=== PATIENT | male | born 1960 | race Caucasian/White ===

== ENCOUNTER 2021-03-10 17:37 | Emergency (ER) | payer SELFPAY ==
[2021-03-10 17:44] VITALS: BP 135/85; PULSE 54; RESP 15; O2SAT 100
--- NOTE | 2021-03-10 17:51 | ECG_ITS ---
Measurements Intervals [place] Rate: 80 P: 72 OR: 137 QRS: 74 QRSD: 102 T: 55 QT: 365 QTc: 422 Interpretive Statements SINUS RHYTHM PEAKED T WAVES- CONSIDER HYPERKALEMIA OR ISCHEMIA BORDERLINE ST ABNORMALITY- INFERIOR LEADS BASELINE ARTIFACT- I, II, III, AVR, AVL, AVF, V1-V6 ABNORMAL ECG Electronically Signed On 03-10-2021 19:44:37 CDT by Marino Pedroza D.O.
--- NOTE | 2021-03-10 17:59 | PC.NURSE ---
Called and spoke to Linda Peterson to add on Trop Baseline
--- NOTE | 2021-03-10 18:00 | PC.NURSE ---
RN requested urine samplfe from pt. pt. will not void
[2021-03-10 18:03] LABS: Basophils Absolute Auto 0.1 K/mm3 (0.0-0.1); Basophils Percent Auto 0.6 % (0.2-1.2); Eosinophils Absolute Auto 0.2 K/mm3 (0-0.3); Eosinophils Percent Auto 1.4 % (0-4.4); Hematocrit 60.7 % (42.0-52.0); Hemoglobin 19.4 g/dL (14.0-18.0); Immature Granulocyte Absolute 0.06 K/mm3 (0.00-0.031); Immature Granulocyte Percent A 0.4 % (0-0.5); Lymphocytes Absolute Auto 4.75 K/mm3 (0.9-3.2); Lymphocytes Percent Auto 30.7 % (18.3-44.2); Mean Corpuscular Hemoglobin 30.6 pg (26-34); Mean Corpuscular Volume 95.9 fl (80-100); Mean Platelet Volume 9.9 fl (7.4-10.4); Monocytes Absolute Auto 0.7 K/mm3 (0.1-0.6); Monocytes Percent Auto 4.4 % (2.6-8.5); Neutrophils Absolute Auto 9.7 K/mm3 (1.3-6.7); Neutrophils Percent Auto 62.5 % (45.5-73.1); Platelet Count Result 298 k/mm3 (150-375); Red Blood Count 6.33 M/mm3 (4.6-6.20); Red Cell Distribution Width 14.9 % (11.5-14.5); White Blood Count 15.5 K/mm3 (4.5-10.0)
[2021-03-10 18:15] LABS: Lipase 313 U/L (23-300)
--- NOTE | 2021-03-10 18:22 | ED.CHESTPAIN ---
HPI - Chest Pain General Chief Complaint: Nausea/Vomiting/Diarrhea Stated Complaint: N/V/SOB Time Seen by Provider: 03/10/21 17:56 Source: patient Mode of arrival: ambulatory Limitations: no limitations History of Present Illness HPI narrative: Patient is a 60-year-old male complaining of nausea and vomiting accompanied by chest discomfort that started today. Patient states his vomitus is nonbilious nonbloody. Patient states that he attributes his nausea and vomiting after eating bad chicken . Patient states that he also had chest discomfort which he attributes to the dry heaves and vomiting, currently denies any chest pain or discomfort. 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 Patient denies any shortness of breath, abdominal pain, diarrhea, fever or chills. Related Data Allergies Allergy/AdvReac Type Severity Reaction Status Date / Time No Known Allergies Allergy Verified 03/10/21 19:24 Review of Systems Review of Systems: All systems reviewed & are unremarkable except as noted in HPI and below Constitutional: Constitutional: Denies body ache(s), Denies chills, Denies fatigue, Denies fever(s), Denies headache(s), Denies lethargy, Denies malaise, Denies weakness and Denies weight loss Eyes: Eyes: Denies blurry vision, Denies change in vision and Denies loss of vision ENT: Denies dizziness, Denies ear discharge, Denies headache(s), Denies lip swelling, Denies epistaxis, Denies nasal congestion, Denies neck pain, Denies throat swelling and Denies tongue swelling Cardiovascular: Cardiovascular: Denies diaphoresis, Denies rapid heart rate, Denies edema, Denies irregular heart rhythm, Denies lightheadedness, Denies palpitations, Denies dyspnea and Denies dyspnea on exertion Respiratory: Respiratory: Denies chest congestion, Denies cough, Denies hemoptysis, Denies dyspnea and Denies dyspnea on exertion Gastrointestinal: Gastrointestinal: Denies abdominal pain, Denies melena, Denies hematochezia, Denies diarrhea and Denies hematemesis Musculoskeletal: Musculoskeletal: Denies abnormal gait, Denies deformity, Denies joint swelling, Denies limited range of motion, Denies neck pain and Denies numbness Neurologic: Denies Abnormal speech present, Denies abnormal gait, Denies confusion, Denies dizziness, Denies headache(s), Denies focal weakness, Denies loss of vision, Denies numbness, Denies Other visual disturbances, Denies Sensory deficit (Neuro) and Denies weakness Psychiatric: Psychiatric: Denies confusion, Denies depression, Denies auditory hallucinations, Denies homicidal ideation and Denies suicidal ideation Endocrine: Endocrine: Denies cold intolerance, Denies excessive sweating, Denies fatigue, Denies heat intolerance and Denies palpitations Hematologic/Lymphatic: Hematologic/Lymphatic: Denies easy bleeding and Denies easy bruising Allergic/Immunologic: Allergic/Immunologic: Denies lip swelling, Denies throat swelling and Denies tongue swelling Exam Const: General: cooperative, comfortable, no acute distress, well developed, alert and awake; No confusion Orientation/consciousness: oriented to person, oriented to place, oriented to time, patient oriented x3 and No confusion Limitations: no limitations Other: Mild distress HENMT: Head: normal to inspection, normocephalic and atraumatic Ears: hearing grossly normal bilaterally, TM normal on the right and TM normal on the left General nose exam: Normal external nose present, Normal nares present and No nasal discharge present Face and sinus: normal facial exam Mouth: Yes Normal oral and palatal mucosa present, Yes lip normal, Yes tongue normal and Yes oropharynx normal Throat: posterior oropharynx normal, tonsils normal and uvula midline Eyes: General: appearance normal, both eyes and all related structures Pupils: Equal, round and reactive pupils present EOM: EOMs intact bilaterally Neck
[2021-03-10 18:29] LABS: Alanine Aminotransferase 22 U/L (4-50); Albumin Level 5.5 g/dL (3.5-5.1); Alkaline Phosphatase 119 U/L (38-126); Anion Gap 23 mmol/L (8-16); Aspartate Amino Transferase 43 U/L (17-59); Bilirubin,Total 0.7 mg/dL (0.2-1.3); Blood Urea Nitrogen 19 mg/dL (9-20); Calcium 11.8 mg/dL (8.4-10.2); Carbon Dioxide 21 mmol/L (22-30); Chloride 102 mmol/L (98-107); Estimated Glomerular Filt Rate 48; Glucose 173 mg/dL (65-110); Sodium 146 mmol/L (137-145)
[2021-03-10] MEDS: ONDANSETRON INJ 4 MG/2 ML VIAL (18:38)
[2021-03-10 18:41] LABS: Troponin I < 0.012 ng/mL (0.000-0.034)
[2021-03-10] MEDS: SODIUM CHLORIDE 0.9% IV 1,000 ML 999 ML IV CONT (18:45)
[2021-03-10 18:51] LABS: Ethanol < 10 mg/dL (<10)
--- NOTE | 2021-03-10 19:23 | PC.NURSE ---
tech asked pt. for urine. pt. will not void.
[2021-03-10 19:24] VITALS: BP 107/73; PULSE 76; RESP 14; O2SAT 98
--- NOTE | 2021-03-10 19:24 | PC.NURSE ---
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
[2021-03-10 20:57] VITALS: BP 109/77; PULSE 65; RESP 16; TEMP 36.8; O2SAT 100
== END 2021-03-10 21:00 | disposition left against medical advice (07) ==
PROVIDERS: Emergency Medicine; Emergency Provider Emergency Medicine
DX: R07.9 Chest pain, unspecified (principal); A05.9 Bacterial foodborne intoxication, unspecified; R94.31 Abnormal electrocardiogram [ECG] [EKG]
CPT/HCPCS: 36415; 80053; 80307; 83690; 84484; 85025; 93005; 96361; 96374; 99284; J2405; J7030